=== PATIENT | male | born 1970 ===

== ENCOUNTER 2025-09-17 16:58 | Emergency (ER) | payer SELFPAY ==
--- NOTE | ~2025-09-17 | CT_ITS ---
CLINICAL HISTORY: right flank pain CT abdomen and pelvis without contrast Comparison: None provided Findings: Mild dependent atelectasis both lung bases, most evident in the lingula and left lower lobe. Mild left hemidiaphragm elevation of uncertain etiology/chronicity. Moderate right hydroureteronephrosis. 3 mm distal ureteral stone just above the ureterovesicular junction. Prominent perinephric fluid. 1 mm nonobstructing left superior renal stone. Gallbladder and solid organs otherwise unremarkable. No bowel obstruction, pneumoperitoneum, or pneumatosis. Small umbilical hernia contains fat without induration. Normal appendix. The bones are intact. IMPRESSION: 1. 3 mm obstructing right distal ureteral stone. Prominent perinephric fat stranding is likely due to forniceal backflow of urine. 2. Bibasilar atelectasis, more evident on the left. Impression new line additional findings as above. This document has been electronically signed by: Virginia Prescott MD on 09/17/2025 23:53:54
--- NOTE | ~2025-09-17 | XR_ITS ---
CLINICAL HISTORY: right pleuritic pain 2 view chest x-ray Comparison: CT/SR - CT ABDOMEN PELVIS WO IV CON - 09/17/25 22:55 EST Findings: Low lung volumes. Bibasilar atelectasis. No consolidation, effusion, or pneumothorax. Normal size heart. No acute fracture. IMPRESSION: Bibasilar atelectasis. This document has been electronically signed by: Virginia Prescott MD on 09/17/2025 23:54:44
--- NOTE | 2025-09-17 18:54 | ED_ITS ---
HPI - General Adult General Chief complaint: Abdominal Pain Stated complaint: abd pain Time Seen by Provider: 09/17/25 22:04 History of Present Illness ED Provider: Femi Related Data Previous Rx's ?Medication ?Instructions ?Recorded acetaminophen 500 mg capsule 1,000 mg (2 x 500 mg) PO Q8H PRN 09/18/25 fever or pain #14 caps ondansetron 4 mg disintegrating 4 mg PO Q6H PRN nausea and 09/18/25 tablet vomiting #10 tabs oxycodone 5 mg tablet 5 mg PO Q6H PRN pain #8 tabs 09/18/25 Allergies Allergy/AdvReac Type Severity Reaction Status Date / Time No Known Allergies Allergy Verified 09/17/25 19:02 [facility] Social History Social History Smoked in Last 30 Days: No Use of substances other than those prescribed or required for medical reasons: No Advance Directives: No Advance Directives Information Provided: No Do you have a plan to hurt others: No Plan Physical Exam ED Vital Signs: Vital Signs - 24 hr 09/17/25 19:00 09/17/25 22:29 09/18/25 00:00 Temperature 98.6 F 98.6 F 98.6 F Pulse Rate 88 86 90 Respiratory Rate 20 Blood Pressure 157/111 H 163/100 H 175/93 H Pulse Oximetry 96 94 95 Oxygen Delivery Method Room Air Room Air Room Air 09/18/25 00:39 09/18/25 01:58 09/18/25 03:27 Temperature 98.0 F Pulse Rate 85 91 79 Respiratory Rate 17 16 Blood Pressure 172/108 H 158/101 H 161/97 H Pulse Oximetry 95 93 96 Oxygen Delivery Method Room Air Room Air Room Air BMI result Body Mass Index 29.3 Const Other: The patient is awake and alert. He was pleasant and cooperative. He looked mildly uncomfortable. Orientation/consciousness: patient oriented x3 HENMT Other: The face is symmetrical. ?Mucous membranes moist. Eyes Other: Pupils are round equal, conjunctivae are clear, extraocular movements intact Neck Neck: Yes full ROM Resp Effort & Inspection: normal respiratory effort Auscultation: clear to auscultation bilaterally Cardio Rate: regular rate Rhythm: regular rhythm Heart sounds: S1 normal heart sound present and S2 normal heart sound present GI Other: The abdomen is soft. No significant abdominal tenderness. Back/Spine/Pelvis Other: Right sided CVA percussion tenderness Skin Other: The skin is dry and unremarkable Neuro General: patient oriented x3, gait normal, tone normal, moves all extremities, no focal motor deficits and CN's II-XI intact bilaterally Extrem Other: There is no calf swelling or tenderness. No asymmetry. No peripheral edema. Course Course Course Narrative: Delicia Cid MD 09/17/25 18:59 pt is swedish speaking R back/flank pain started this am. when pt woke up, he had no pain, had coffee and cake, then went to work. at work started having nausea. pain started around 8am R flank pain, no pain with urination, decreased amount of urine, denies hematuria. pain in R flank, constant, non radiating denies any heavy lifting but admits he has been shoveling snow states that pain is worse when he moves certain ways. stopped drinking water due to bloating and nausea. no vomit no history of kidney stones, complaining of chills, unknown fever hx htn complete physical exam to be done per primary provider, labs pending Medications Administered Discontinued Medications Generic Name Dose Route Start Last Admin Trade Name Maisha PRN Reason Stop Dose Admin Hydromorphone HCl 1 mg 09/18/25 00:48 09/18/25 01:15 Hydromorphone Hcl 1 Mg/Ml Syringe IVPUSH 09/18/25 00:49 1 mg ONCE ONE Administration Protocol Sodium Chloride 1,000 mls @ 999 mls/hr 09/17/25 22:30 09/18/25 00:01 Ns IV 09/17/25 23:30 Infused .Q1H1M MARKOS Infusion Lactated Ringer's 1,000 mls @ 999 mls/hr 09/17/25 23:30 09/18/25 01:15 Lr IV 09/18/25 00:30 Infused .Q1H1M MARKOS Infusion Acetaminophen 1,000 mg in 100 mls @ 400 mls/hr 09/17/25 23:41 09/18/25 00:25 Ofirmev IV 09/17/25 23:55 Infused ONCE ONE Infusion Morphine Sulfate 4 mg 09/17/25 22:25 09/17/25 22:41 Morphine Sulfate 4 Mg/Ml Cartridge IVPUSH 09/17/25 22:26 4 mg ONCE ONE Administration Protocol Morphine Sulfate 4 mg 09/17/25 23:41 09/18/25 00:00 Morphine Sulfate 4 Mg/Ml Cartridge IVPUSH 09/17/25 23:42 4 mg ONCE ONE Administration Protocol Ondansetron HCl 4 mg 09/17/25 22:25 09/17/25 22:40 Ondansetron Hcl 4 Mg/2 Ml Vial IVPUSH 09/17/25 22:26 4 mg ONCE ONE Administration Oxycodone HCl 5 mg 09/18/25 03:15 09/18/25 03:27 Oxycodone Hcl Immed Release 5 Mg Tablet PO 09/18/25 03:16 5 mg ONCE ONE Administration Tamsulosin HCl 0.4 mg 09/17/25 23:41 09/18/25 00:00 Tamsulosin Hcl 0.4 Mg Capsule PO 09/17/25 23:42 0.4 mg ONCE ONE Administration Medical Decision Making Medical Decision Making [facility] Narrative: The patient is a 54-year-old male who presents with what seemed to be primarily right-sided flank pain although he describes the pain has been somewhat pleuritic. A noncontrast CT scan shows 3 mm obstructing right distal ureteral stone with hydroureteronephrosis and evidence of perinephric fluid suggestive of a calyceal rupture. No sign of infection in the patient's urine. The patient is hypertensive. He says that he has been on losartan for hypertension in the past but he has not seen a primary care doctor in a while and I do not think he has been on this medication recently. The patient's urinalysis does not suggest the presence of an infection. The patient was given IV fluids. He was given morphine for pain and later hydromorphone. Ultimately the patient felt significantly better. Given that his stone is only 3 mm he is likely to pass this without intervention by Urology. It is hard to unknown whether his renal function represents an acute change in his renal function or whether this is a chronic. We do not have old records at this hospital that I can see. I also accessed the [employer] system and there were no results there either. The patient seems to be eager to go home since he is feeling better. He plans on applying for insurance. He will be prescribed oxycodone, acetaminophen, and ondansetron for symptom control. He is encouraged to drink a lot of fluids. He is encouraged to work on getting insurance so he can get a primary care doctor. He has been advised that he needs to get back on regular blood pressure management. The the patient has been given the contact information for [facility] as well as several primary care practices. My hope is he will be able to follow up with the urologist soon. He knows that he should return to the emergency room if he feels significantly worse. Lab Data 09/17/25 19:47 09/17/25 19:47 Labs: Lab Results 09/17/25 09/17/25 Range/Units 19:47 22:45 WBC 14.1 H (4.8-10.8) X10*3/uL RBC 5.19 (4.60-5.80) X10*6/uL Hgb 16.2 (14.0-18.0) g/dl Hct 48.0 (42.0-52.0) % MCV 92.5 (80.0-98.0) fL MCH 31.2 (27.0-33.0) pg MCHC 33.8 (31.0-36.0) g/dl RDW 11.7 (11.0-16.0) % Plt Count 315 (160-400) X10*3/uL MPV 9.1 L (9.4-12.4) fL Immature Gran % (Auto) 0.3 (0.0-0.4) % Neut % (Auto) 87.2 H (45-73) % Lymph % (Auto) 7.5 L (20-40) % [place] % (Auto) 4.5 (2-11) % Eos % (Auto) 0.1 (0-4) % Baso % (Auto) 0.4 (0-2) % Lymph # (Auto) 1.1 L (1.2-4.9) X10*3/uL [place] # (Auto) 0.6 (0.1-1.2) X10*3/uL Eos # (Auto) 0.0 (0.0-0.4) X10*3/uL Baso # (Auto) 0.1 (0.0-0.2) X10*3/uL Abs Immat Gran (auto) 0.04 H (0.00-0.03) X10*3/uL Absolute Neuts (auto) 12.3 H (2.0-8.3) x10*3/uL Absolute Nucleated RBC 0.000 (0.0-0.012) X10*3/uL Nucleated RBC % (auto) 0.0 (0.0-0.2) /100WBC Sodium 135 (135-145) mmol/L Potassium 4.7 (3.3-5.1) mmol/L Chloride 103 (96-108) mmol/L Carbon Dioxide 23 (22-29) mmol/L Anion Gap 14 (12-20) BUN 24 H (9-16) mg/dL Creatinine 1.69 H (0.5-1.4) mg/dL Estim Creat Clear Calc 71.2 Estimated GFR 42 Random Glucose 123 H (60-115) mg/dL Calcium 9.9 (8.4-10.2) mg/dL Total Bilirubin 0.6 (0.0-1.0) mg/dL Direct Bilirubin 0.2 (0.0-0.5) mg/dL AST 35 (5-37) U/L ALT 31 (0-40) U/L Alkaline Phosphatase 82 (39-117) U/L C-Reactive Protein 0.81 H (< or = 0.50) mg/dL Total Protein 8.1 H (6.5-8.0) g/dL Albumin 5.2 H (3.5-5.0) g/dL Lipase 26 (8-78) U/L Urine Color Yellow Urine Appearance Clear Urine pH 5.0 (5.0-9.0) Ur Specific [place] >= 1.030 H (1.005-1.025) Urine Protein 30 (1+) H (Neg-Trace) mg/dL Urine Glucose (UA) Negative (Negative) mg/dL Urine Ketones 15 (Negative) mg/dL Urine Blood Negative (Negative) Urine Nitrite Negative (Negative) Ur Leukocyte Esterase Negative (Negative) Urine RBC 0-2 (0-2) /HPF Urine WBC 0-5 (0-5) /HPF Ur Squamous Epith Cells 0-2 (0-2) /HPF Urine Bacteria None Seen (None Seen) Hyaline Casts 0-2 (0-2) /LPF Discharge Plan Discharge Clinical Impression: Ureteral colic, Calculus of distal right ureter, Renal insufficiency, Hypertension Patient Disposition: Home, Self-Care Instructions: Kidney Stones (ED), Renal Colic (ED), Ureteral Stones (ED) Additional Instructions: You have a 3 mm kidney stone at the far end of your right ureter. The ureter is the tube that connects your right kidney to your bladder. The stone is not far from the bladder. Once the stone has entered your bladder your symptoms should resolve. For the time being the treatment of this problem is to treat the pain until the stone moves into bladder. Please use the prescribed acetaminophen 3 times a day, approximately every 8 hours, as needed for pain. Additionally there is a prescription for oxycodone which you may use every 6 hours as needed for pain. No driving on oxycodone. If you have nausea you may use the prescribed ondansetron as needed. Ordinarily a person with a kidney stone should follow up with Urology. You has been given the contact information for the urology office. Urologists are specialists who deal with kidney stones. My hope is that you may be able to make an appointment with the urology office and get seen even though you are having insurance troubles. Please work on getting insurance. Your blood pressures today show that you have chronic high blood pressure. You need to get a primary care doctor see you can be maintained on blood pressure medications. Also your kidney function was mildly abnormal today. This will need to be rechecked Please drink lot of fluids over the next several days. This will help your kidneys recover. If you feel significantly worse at any time please return to the emergency room for additional care. Prescriptions: New ondansetron 4 mg tablet,disintegrating 4 mg PO Q6H PRN (Reason: nausea and vomiting) Qty: 10 0RF acetaminophen 500 mg capsule 1,000 mg PO Q8H PRN (Reason: fever or pain) Qty: 14 0RF oxycodone 5 mg tablet 5 mg PO Q6H PRN (Reason: pain) Qty: 8 0RF Rx Instructions: Partial Fill upon patient request. Referrals: [facility] [Provider Group] [facility] [place] [facility] Group, [place] Medicine] [facility] [place] [facility] Group, Internal Medicine] [facility] [place] [facility] [Provider Group, Primary Care] [facility] [place] [facility] [place] Group, [place]rology] Print Language: Kazakh
[2025-09-17 19:00] VITALS: BP 157/111; PULSE 88; RESP 20; TEMP 37; O2SAT 96; BMI 29.3
[2025-09-17 19:52] LABS: MANUAL DIFF FLAG NO
[2025-09-17 19:53] LABS: Hematocrit 48.0 % (42.0-52.0); Hemoglobin 16.2 g/dl (14.0-18.0); Imm Gran Abs Auto 0.04 X10*3/uL (0.00-0.03); Imm Gran Pct Auto 0.3 % (0.0-0.4); Lymphocytes Absolute Auto 1.1 X10*3/uL (1.2-4.9); Mean Corpuscular HGB Conc 33.8 g/dl (31.0-36.0); Mean Corpuscular Hemoglobin 31.2 pg (27.0-33.0); Mean Corpuscular Volume 92.5 fL (80.0-98.0); NRBC Abs Auto 0.000 X10*3/uL (0.0-0.012); NRBC Pct Auto 0.0 /100WBC (0.0-0.2); Platelet Count 315 X10*3/uL (160-400); Red Blood Count 5.19 X10*6/uL (4.60-5.80); White Blood Count 14.1 X10*3/uL (4.8-10.8)
[2025-09-17 20:18] LABS: Albumin Level 5.2 g/dL (3.5-5.0); Alkaline Phosphatase 82 U/L (39-117); Anion Gap 14 (12-20); Aspartate Amino Transferase 35 U/L (5-37); Blood Urea Nitrogen 24 mg/dL (9-16); Calcium 9.9 mg/dL (8.4-10.2); Carbon Dioxide 23 mmol/L (22-29); Chloride 103 mmol/L (96-108); Creatinine Clr Calc Pharmacy 71.2; Estimated Glomerular Filt Rate 42; Potassium 4.7 mmol/L (3.3-5.1); Sodium 135 mmol/L (135-145); Total Protein 8.1 g/dL (6.5-8.0)
[2025-09-17 20:48] LABS: Alanine Aminotransferase 31 U/L (0-40)
[2025-09-17 22:29] VITALS: BP 163/100; PULSE 86; TEMP 37; O2SAT 94
[2025-09-17 22:41] LABS: Lipase 26 U/L (8-78)
[2025-09-17 22:53] LABS: Appearance Urine Clear; Glucose Urine UA Negative (Negative); PH 5.0 (5.0-9.0); Specific Gravity - Urine >= 1.030 (1.005-1.025); UMIC TRIGGER UACC YES
[2025-09-18] VITALS: BP 175/93; PULSE 90; TEMP 37; O2SAT 95
[2025-09-18] MEDS: Lactated Ringers 1,000 ML 999 ML IV
[2025-09-18 00:39] VITALS: BP 172/108; PULSE 85; RESP 17; O2SAT 95
[2025-09-18 01:58] VITALS: BP 158/101; PULSE 91; O2SAT 93
[2025-09-18 03:27] VITALS: BP 161/97; PULSE 79; RESP 16; TEMP 36.7; O2SAT 96
[2025-09-18] MEDS: oxyCODONE HCl Immed Release 5 MG TABLET PO (03:27)
[2025-09-18 03:41] VITALS: BP 161/97; PULSE 79; RESP 16; TEMP 36.7; O2SAT 96
== END 2025-09-18 03:45 | disposition home or self-care (01) ==
PROVIDERS: Emergency Medicine; Emergency Provider Emergency Medicine
DX: N13.2 Hydronephrosis with renal and ureteral calculous obstruction (principal); N28.9 Disorder of kidney and ureter, unspecified; I10 Essential (primary) hypertension; Z79.899 Other long term (current) drug therapy
CPT/HCPCS: 36415; 71046; 74176; 80048; 80076; 81001; 83690; 85025; 86140; 96361; 96374; 96375; 96376; 99284; 99285; J0131; J1171; J2270; J2405; J7120

== ENCOUNTER → 2025-09-17 22:27 | Outpatient (BNV) | payer SELFPAY | PROVIDERS: Emergency Provider Emergency Medicine; Visit Provider Radiology Diagnostic Radiology | DX: N20.1 Calculus of ureter (principal); J98.11 Atelectasis | CPT/HCPCS: 71046; 74176 ==